=== PATIENT | female | born 2000 | race Caucasian/White ===

== ENCOUNTER 2024-10-29 11:56 | Emergency (ER) | payer MEDICAID ==
[~2024-10-29] VITALS: Ht 167.6 cm; Wt 87.0 kg
[2024-10-29 12:04] VITALS: TEMP 36.9; O2SAT 100
[2024-10-29] MEDS: LIDOCAINE 5% PATCH TOP SCH (13:48)
[2024-10-29] MEDS: KETOROLAC 15MG/ML VIAL IM ONE (13:48)
[2024-10-29] MEDS ORDERED: CYCL10TA21 MT (13:49)
[2024-10-29] MEDS ORDERED: IBUP-2029 MT (13:49)
[2024-10-29] MEDS ORDERED: LIDO-53 TP (13:49)
[2024-10-29 13:57] VITALS: BP 129/75; PULSE 66; RESP 16; O2SAT 98
== END 2024-10-29 13:58 | disposition home or self-care (01) ==
LOC: ER 11:56
DX: S16.1XXA Strain of muscle, fascia and tendon at neck level, initial encounter (principal); V43.52XA Car driver injured in collision with other type car in traffic accident, initial encounter; Y92.410 Unspecified street and highway as the place of occurrence of the external cause; Y92.89 Other specified places as the place of occurrence of the external cause; Y99.8 Other external cause status
CPT/HCPCS: 99283; 71046; 81025; 96372; J1885